=== PATIENT | male | born 1950 | race Caucasian/White ===

== ENCOUNTER 2021-08-17 15:47 | Observation (INO) | payer MEDICARE, OTHER ==
[2021-08-17 16:10] LABS: CHLORIDE,CL 104 mEq/L (98-106); SODIUM,NA 142 mEq/L (136-145)
[2021-08-17] MEDS ORDERED: Aspirin 81 MG Tab.Chew PO ONE (16:43)
--- NOTE | 2021-08-17 18:08 | EDM.PDOC ---
ED HPI GENERAL MEDICAL PROBLEM - General Chief Complaint: General Stated Complaint: CP/SOB Time Seen by Provider: 08/17/21 16:09 Source of Information: Reports: Patient History Limitations: Reports: No Limitations - History of Present Illness INITIAL COMMENTS - FREE TEXT/NARRATIVE: Alonzo is a 70 year old male with PMH of type 2 DM, CAD, hyperlipidemia, and BPH who presents to the ED with c/o midsternal chest pain. He reports onset yesterday afternoon. Describes the pain as pressure. He reports he did take nitro x3 prior to presenting to the ED and these did not relieve pain. Was given aspirin upon arrival, which he states did help the pressure type pain some. Does admit to onset of some phlegm and cough this morning. He denies any shortness of breath, dizziness, nausea, diaphoresis, palpitations. Does have hx of CAD with stent x1 back in approximately 2008 per his report. I do not have his records available for review. 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 He is originally from the [facility]. Onset Date: 08/16/21 Location: Reports: Chest Quality: Reports: Pressure Associated Symptoms: Reports: Chest Pain, Cough. Denies: Confusion, Diaphoresis, Fever/Chills, Headaches, Loss of Appetite, Malaise, Nausea/Vomiting, Rash, Seizure, Shortness of Breath, Syncope, Weakness mid sternal chest Pain Score (Numeric/FACES): 5 - Related Data Allergies Allergy/AdvReac Type Severity Reaction Status Date / Time bacitracin Allergy Hives Verified 08/17/21 15:48 [From Neosporin ([id number])] bee venom protein (honey bee) Allergy Anaphylactic Verified 08/17/21 15:48 Shock neomycin Allergy Hives Verified 08/17/21 15:48 [From Neosporin ([id number])] polymyxin B Allergy Hives Verified 08/17/21 15:48 [From Neosporin ([id number])] Home Meds: Home Meds Finasteride 1 mg PO DAILY 08/17/21 [History] Insulin Detemir [Levemir Flextouch] 52 unit SQ BID 08/17/21 [History] Liraglutide [Victoza 2-Jared] 1.8 mg SQ DAILY 08/17/21 [History] Lovastatin 20 mg PO DAILY 08/17/21 [History] Quinapril [Accupril] 10 mg PO DAILY 08/17/21 [History] Tamsulosin [Tamsulosin 24 Hr] 0.4 mg PO DAILY 08/17/21 [History] metFORMIN [Glucophage] 1,000 mg PO BIDMEALS 08/17/21 [History] Past Medical History Cardiovascular History: Reports: High Cholesterol, Hypertension, MS, Stents Genitourinary History: Reports: BPH Endocrine/Metabolic History: Reports: Diabetes, Type II Social & Family History - Family History Family Medical History: No Pertinent Family History - Tobacco Use Tobacco Use Status *Q: Unknown Ever Used Tobacco Second Hand Smoke Exposure: No ED ROS GENERAL - Review of Systems Review Of Systems: Comprehensive ROS is negative, except as noted in HPI. ED EXAM, GENERAL - Physical Exam Exam: See Below Exam Limited By: No Limitations General Appearance: Alert, WD/WN, No Apparent Distress Ears: Normal External Exam, Normal Canal, Hearing Grossly Normal, Normal TMs Nose: Normal Inspection, Normal Mucosa, No Blood Throat/Mouth: Normal Inspection, Normal Lips, Normal Teeth, Normal Gums, Normal Oropharynx, Normal Voice, No Airway Compromise Head: Atraumatic, Normocephalic Neck: Normal Inspection, Supple, Non-Tender, Full Range of Motion Respiratory/Chest: No Respiratory Distress, Lungs Clear, Normal Breath Sounds, No Accessory Muscle Use, Chest Non-Tender Cardiovascular: Normal Peripheral Pulses, Regular Rate, Rhythm, No Edema, No Gallop, No JVD, No Murmur, No Rub GI/Abdominal: Normal Bowel Sounds, Soft, Non-Tender, No Organomegaly, No Distention, No Abnormal Bruit, No Mass Extremities: Normal Inspection, Normal Range of Motion, Non-Tender, Normal Capillary Refill, No Pedal Edema Neurological: Alert, Oriented, CN II-XII Intact, Normal Cognition, Normal Gait, Normal Reflexes, No Motor/Sensory Deficits Psychiatric: Normal Affect, Normal Mood Skin Exam: Warm, Dry, Intact, Normal Color, No Rash Course - Vital Signs Last Recorded V/S: Last Vital Signs Temp 97.9 F 08/17/21 18:47 Pulse 81 08/17/21 18:47 Resp 18 08/17/21 18:47 BP 142/74 H 08/17/21 18:47 Pulse Ox 96 08/17/21 18:47 - Orders/Labs/Meds Orders: Active Orders 24 hr Category Date Time Status Chest 2V [CR] Stat Exams 08/17/21 15:52 Ordered EKG 12 Lead [EK] Routine Ther 08/17/21 19:00 Ordered Labs: Laboratory Tests 08/17/21 08/17/21 08/17/21 Range/Units 15:52 15:52 15:52 WBC 9.0 (4.0-11.0) 10^3/uL RBC 5.64 (4.50-6.00) x10^6/uL Hgb 15.5 (14.0-18.0) g/dL Hct 46.9 (42.0-52.0) % MCV 83.2 (83.0-97.0) fL MCH 27.5 (27.0-32.0) pg MCHC 33.0 (32.0-36.0) g/dL RDW Coeff of Rita 13.1 (11.0-15.0) % Plt Count 247 (150-400) 10^3/uL Immature Gran % (Auto) 0.9 (0.0-4.9) % Neut % (Auto) 67.3 (41-71) % Lymph % (Auto) 20.1 L (24-44) % [place]rentiss % (Auto) 7.5 (0-10) % Eos % (Auto) 3.4 (0-6) % Baso % (Auto) 0.8 (0-1) % Neut # (Auto) 6.08 (1.80-8.00) x10^3/uL Lymph # (Auto) 1.82 (0.60-5.00) 10^3/uL [place]rentiss # (Auto) 0.68 (0.00-1.50) 10^3/uL Eos # (Auto) 0.31 (0.00-1.50) 10^3/uL Baso # (Auto) 0.07 (0.00-0.50) 10^3/uL Immature Gran # (Auto) 0.08 (0.00-0.49) 10^3/uL Sodium 142 (136-145) mEq/L Potassium 4.0 (3.5-5.0) mEq/L Chloride 104 (98-106) mEq/L Carbon Dioxide 30 (21-32) mmol/L BUN 20 H (7-18) mg/dL Creatinine 1.2 (0.7-1.3) mg/dL Est Cr Clr Drug Dosing 56.21 mL/min Estimated GFR (MDRD) > 60 (>=60) mL/min Glucose 148 H (75-99) mg/dL Calcium 9.2 (8.4-10.1) mg/dL Magnesium 2.0 (1.8-2.4) mg/dL Total Bilirubin 0.6 (0.0-1.0) mg/dL AST 13 L (15-37) U/L ALT 23 (12-78) U/L Alkaline Phosphatase 79 (46-116) U/L Troponin I High Sens 105.7 H* (<=76) pg/mL Total Protein 7.0 (6.4-8.2) g/dL Albumin 3.6 (3.4-5.0) g/dL SARS CoV-2 RNA Rapid GEMMA Negative (NEGATIVE) 08/17/21 Range/Units 19:13 WBC (4.0-11.0) 10^3/uL RBC (4.50-6.00) x10^6/uL Hgb (14.0-18.0) g/dL Hct (42.0-52.0) % MCV (83.0-97.0) fL MCH (27.0-32.0) pg MCHC (32.0-36.0) g/dL RDW Coeff of Rita (11.0-15.0) % Plt Count (150-400) 10^3/uL Immature Gran % (Auto) (0.0-4.9) % Neut % (Auto) (41-71) % Lymph % (Auto) (24-44) % Prentiss % (Auto) (0-10) % Eos % (Auto) (0-6) % Baso % (Auto) (0-1) % Neut # (Auto) (1.80-8.00) x10^3/uL Lymph # (Auto) (0.60-5.00) 10^3/uL Prentiss # (Auto) (0.00-1.50) 10^3/uL Eos # (Auto) (0.00-1.50) 10^3/uL Baso # (Auto) (0.00-0.50) 10^3/uL Immature Gran # (Auto) (0.00-0.49) 10^3/uL Sodium (136-145) mEq/L Potassium (3.5-5.0) mEq/L Chloride (98-106) mEq/L Carbon Dioxide (21-32) mmol/L BUN (7-18) mg/dL Creatinine (0.7-1.3) mg/dL Est Cr Clr Drug Dosing mL/min Estimated GFR (MDRD) (>=60) mL/min Glucose (75-99) mg/dL Calcium (8.4-10.1) mg/dL Magnesium (1.8-2.4) mg/dL Total Bilirubin (0.0-1.0) mg/dL AST (15-37) U/L ALT (12-78) U/L Alkaline Phosphatase (46-116) U/L Troponin I High Sens 122.8 H* (<=76) pg/mL Total Protein (6.4-8.2) g/dL Albumin (3.4-5.0) g/dL SARS CoV-2 RNA Rapid GEMMA (NEGATIVE) Meds: Medications Discontinued Medications Generic Name Dose Route Start Last Admin Trade Name Freq PRN Reason Stop Dose Admin Aspirin 324 mg 08/17/21 16:43 08/17/21 16:44 Aspirin 81 Mg Tab.Chew PO 08/17/21 16:44 324 mg ONETIME ONE Administration - Re-Assessments/Exams Free Text/Narrative Re-Assessment/Exam: 08/17/2021 1700 Discussed labs, EKG and CXR results with patient. EKG shows NSR without any ST changes. VSS on RA. Labs all unremarkable except high sensitivity troponin elevated to 105.7. This was discussed with patient. Recommend we repeat labs in 3 hours. Discussed observation stay vs. repeat of labs and EKG at 3 hours socorro. He does not wish to stay observation but is agreeable to have lab work repeated and be monitored on telemetry. Will keep in extended ED. 08/17/2021 1930 Repeat troponin and EKG completed. EKG without changes. Troponin elevated to 122.8. Patient prefers [facility] if able, as he is originally from [place] and this is closest. Contacted [facility] and [facility]. They are unable to accept transfer at this time due to no bed availability. I did consult with [facility] sales and service technician Dr. Watters. Recommend trending t roponin to peak and fall, every 3-4 hrs or STAT if chest pain returns. Also recommend repeat EKG every 3 hours as well as initiation of heparin gtt and aspirin. Discussed with patient and patient's via phone. He is now agreeable to observation stay. Patient wished for me to contact his , who is a nurse. Discussed risks and benefits of heparin with patient's , who is a nurse. Risk of bleeding. She verbalized understanding. Departure - Departure Time of Disposition: 21:07 Disposition: Refer to Observation Condition: Fair Clinical Impression: NSTEMI (non-ST elevated myocardial infarction) - Discharge Information *PRESCRIPTION DRUG MONITORING PROGRAM REVIEWED*: Not Applicable *COPY OF PRESCRIPTION DRUG MONITORING REPORT IN PATIENT NOHEMI: Not Applicable Sepsis Event Note (ED) - Evaluation Sepsis Screening Result: No Definite Risk - Focused Exam Vital Signs: Vital Signs Temp Pulse Resp BP Pulse Ox 08/17/21 18:47 97.9 F 81 18 142/74 H 96 08/17/21 16:43 86 18 123/85 95 08/17/21 15:59 97.8 F 68 18 137/92 H 96 - Problem List & Annotations (1) NSTEMI (non-ST elevated myocardial infarction) SNOMED Code(s): 33515770 Code(s): I21.4 - NON-ST ELEVATION (NSTEMI) MYOCARDIAL INFARCTION Status: Acute Current Visit: Yes - Problem List Review Problem List Initiated/Reviewed/Updated: Yes - My Orders Last 24 Hours: My Active Orders 08/17/21 15:52 Chest 2V [CR] Stat 08/17/21 19:00 EKG 12 Lead [EK] Routine - Assessment/Plan Admission H&P: Please use this note as an admission H&P Last 24 Hours: My Active Orders 08/17/21 15:52 Chest 2V [CR] Stat 08/17/21 19:00 EKG 12 Lead [EK] Routine Assessment:: NSTEMI Plan: 70 yo gentleman presents to ED with 1.5 day history of midsternal chest pain, described as pressure. Prior to presentation, he did take nitro x 3 doses without relief of pain. He did report mild relief of pain after aspirin dose. Lab work unremarkable except troponin elevated to 105.7. EKG NSR without ST changes. Repeat troponin elevated to 122.8. Attempted to transfer patient to higher level of care without success due to limited bed availability. Consulted with [facility] sales and service technician Dr. Watters who recommends initiating heparin gtt and trending troponin throughout the night. Patient will be admitted to observation for ongoing cardiac monitoring. Patient and patient's verbalized understanding and were agreeable with plan.
[2021-08-17] MEDS ORDERED: Heparin Sodium/0.45% NaCl 500 ML IV SCH (21:42)
[2021-08-17] MEDS ORDERED: Sodium Chloride 0.9% 10 ML Syringe FLUSH PRN (21:42)
[2021-08-17] MEDS ORDERED: Nitroglycerin 2% Oint 1 GM UD Packet TOP PRN (21:42)
[2021-08-17] MEDS ORDERED: Non-Formulary Medication 1 Each (Insulin Detemir 100 UNIT/ML Insuln.Pen) SQ SCH (21:45)
[2021-08-17] MEDS ORDERED: Metoprolol Tartrate 25 MG Tab PO SCH (22:00)
[2021-08-17] MEDS: Morphine 2 MG/ML SYRINGE IVPUSH PRN ×2 (22:06→23:49)
[2021-08-17] MEDS ORDERED: Heparin Sodium/0.45% NaCl 500 ML ONE (22:20)
[2021-08-17] MEDS ORDERED: Heparin Sodium 5,000 Units/ML Vial IVPUSH ONE (22:33)
[2021-08-17] MEDS ORDERED: Heparin Sodium 5,000 Units/ML Vial ONE (23:04)
--- NOTE | 2021-08-17 23:26 | PCM.DCSUM1 ---
Discharge Summary - Hospital Course Free Text/Narrative:: Alonzo is a pleasant 70 year old male with PMH type 2 DM, CAD s/p stent in 2008, BPH, HTN and hyperlipidemia, who presented to our ED with c/o a 1.5 day history of mid sternal chest pain described as pressure. Did take 3 SL nitro tabs prior to presentation without relief of pain. Upon presentation to ED, pain was rated at an 8/10. Did have improvement in pain after aspirin was administered. Was initially unable to transfer to higher level of care due to limited bed availability. Serial troponin revealed increasing from 105 to 128 to 433. He did not have EKG changes on repeat EKGs. Heparin gtt was initiated. Morphine x2 administered with short term relief of pain following each dose. Nitro gtt was started as well. Pain did improve following nitro gtt. Again contacted [facility] and reported these lab results along with patient's current pain level and they graciously accepted the patient for transfer. Was unable to provide ground ALS transport locally or from neighboring EMS crews, so [facility] was contacted and will provide helicopter transport to [facility]. Risks and benefits of transfer were discussed with patient. Risks of transfer include but not limited to worsening of condition, , helicopter crash, pain. Benefits of transfer include higher level of care with PCI capability. Risks of nontransfer include worsening of condition, and no PCI. Benefits of nontransfer include convenience. Patient verbalized understanding and was agreeable to transfer. Patient discharged from our facility to the care of [facility] in stable condition. - Discharge Data Discharge Date: 08/17/21 Discharge Disposition: DC/Tfer to Acute Hospital 02 Condition: Good - Referral to Home Health Primary Care Physician: PCP Not In Area - Discharge Diagnosis/Problem(s) (1) NSTEMI (non-ST elevated myocardial infarction) SNOMED Code(s): 95412442 ICD Code: I21.4 - NON-ST ELEVATION (NSTEMI) MYOCARDIAL INFARCTION Status: Acute Current Visit: Yes - Patient Instructions Diet: NPO - Discharge Plan *PRESCRIPTION DRUG MONITORING PROGRAM REVIEWED*: Not Applicable *COPY OF PRESCRIPTION DRUG MONITORING REPORT IN PATIENT NOHEMI: Not Applicable Home Medications: Home Meds Finasteride 1 mg PO DAILY 08/17/21 [History] Insulin Detemir [Levemir Flextouch] 52 unit SQ BID 08/17/21 [History] Liraglutide [Victoza 2-Jared] 1.8 mg SQ DAILY 08/17/21 [History] Lovastatin 20 mg PO DAILY 08/17/21 [History] Quinapril [Accupril] 10 mg PO DAILY 08/17/21 [History] Tamsulosin [Tamsulosin 24 Hr] 0.4 mg PO DAILY 08/17/21 [History] metFORMIN [Glucophage] 1,000 mg PO BIDMEALS 08/17/21 [History] Patient Handouts: Nonspecific Chest Pain, Adult, [id number] Forms: ED Department Discharge Referrals: PCP,Not In Area [Primary Care Provider] - - Discharge Summary/Plan Comment DC Time >30 min.: Yes (Multiple phone calls to find accepting facility) Total # of Minutes for Discharge Time: 90 minutes - General Info Date of Service: 08/17/21 Admission Dx/Problem (Free Text: NSTEMI Functional Status: Reports: Other (ongoing chest pain) - Review of Systems General: Reports: No Symptoms Pulmonary: Denies: Shortness of Breath, Cough Cardiovascular: Reports: Chest Pain, Dyspnea on Exertion Gastrointestinal: Reports: Other (belching, indigestion) Genitourinary: Reports: No Symptoms Musculoskeletal: Reports: No Symptoms Skin: Reports: No Symptoms Neurological: Reports: No Symptoms Psychiatric: Reports: No Symptoms - Patient Data Vitals - Most Recent: Last Vital Signs Temp 97.4 F 08/17/21 21:13 Pulse 74 08/17/21 23:01 Resp 18 08/17/21 21:13 BP 165/99 H 08/17/21 23:01 Pulse Ox 95 08/17/21 21:13 Weight - Most Recent: 224 lb Lab Results - Last 24 hrs: Laboratory Results - last 24 hr 08/17/21 08/17/21 08/17/21 Range/Units 15:52 15:52 15:52 WBC 9.0 (4.0-11.0) 10^3/uL RBC 5.64 (4.50-6.00) x10^6/uL Hgb 15.5 (14.0-18.0) g/dL Hct 46.9 (42.0-52.0) % MCV 83.2 (83.0-97.0) fL MCH 27.5 (27.0-32.0) pg MCHC 33.0 (32.0-36.0) g/dL RDW Coeff of Rita 13.1 (11.0-15.0) % Plt Count 247 (150-400) 10^3/uL Immature Gran % (Auto) 0.9 (0.0-4.9) % Neut % (Auto) 67.3 (41-71) % Lymph % (Auto) 20.1 L (24-44) % [place] % (Auto) 7.5 (0-10) % Eos % (Auto) 3.4 (0-6) % Baso % (Auto) 0.8 (0-1) % Neut # (Auto) 6.08 (1.80-8.00) x10^3/uL Lymph # (Auto) 1.82 (0.60-5.00) 10^3/uL [place] # (Auto) 0.68 (0.00-1.50) 10^3/uL Eos # (Auto) 0.31 (0.00-1.50) 10^3/uL Baso # (Auto) 0.07 (0.00-0.50) 10^3/uL Immature Gran # (Auto) 0.08 (0.00-0.49) 10^3/uL APTT (23.2-32.3) SEC Sodium 142 (136-145) mEq/L Potassium 4.0 (3.5-5.0) mEq/L Chloride 104 (98-106) mEq/L Carbon Dioxide 30 (21-32) mmol/L BUN 20 H (7-18) mg/dL Creatinine 1.2 (0.7-1.3) mg/dL Est Cr Clr Drug Dosing 56.21 mL/min Estimated GFR (MDRD) > 60 (>=60) mL/min Glucose 148 H (75-99) mg/dL Calcium 9.2 (8.4-10.1) mg/dL Magnesium 2.0 (1.8-2.4) mg/dL Total Bilirubin 0.6 (0.0-1.0) mg/dL AST 13 L (15-37) U/L ALT 23 (12-78) U/L Alkaline Phosphatase 79 (46-116) U/L Troponin I High Sens 105.7 H* (<=76) pg/mL Total Protein 7.0 (6.4-8.2) g/dL Albumin 3.6 (3.4-5.0) g/dL SARS CoV-2 RNA Rapid GEMMA Negative (NEGATIVE) 08/17/21 08/17/21 08/17/21 Range/Units 19:13 22:10 22:10 WBC (4.0-11.0) 10^3/uL RBC (4.50-6.00) x10^6/uL Hgb (14.0-18.0) g/dL Hct (42.0-52.0) % MCV (83.0-97.0) fL MCH (27.0-32.0) pg MCHC (32.0-36.0) g/dL RDW Coeff of Rita (11.0-15.0) % Plt Count (150-400) 10^3/uL Immature Gran % (Auto) (0.0-4.9) % Neut % (Auto) (41-71) % Lymph % (Auto) (24-44) % [place] % (Auto) (0-10) % Eos % (Auto) (0-6) % Baso % (Auto) (0-1) % Neut # (Auto) (1.80-8.00) x10^3/uL Lymph # (Auto) (0.60-5.00) 10^3/uL [place]ia # (Auto) (0.00-1.50) 10^3/uL Eos # (Auto) (0.00-1.50) 10^3/uL Baso # (Auto) (0.00-0.50) 10^3/uL Immature Gran # (Auto) (0.00-0.49) 10^3/uL APTT 25.6 (23.2-32.3) SEC Sodium (136-145) mEq/L Potassium (3.5-5.0) mEq/L Chloride (98-106) mEq/L Carbon Dioxide (21-32) mmol/L BUN (7-18) mg/dL Creatinine (0.7-1.3) mg/dL Est Cr Clr Drug Dosing mL/min Estimated GFR (MDRD) (>=60) mL/min Glucose (75-99) mg/dL Calcium (8.4-10.1) mg/dL Magnesium (1.8-2.4) mg/dL Total Bilirubin (0.0-1.0) mg/dL AST (15-37) U/L ALT (12-78) U/L Alkaline Phosphatase (46-116) U/L Troponin I High Sens 122.8 H* 433.9 H* (<=76) pg/mL Total Protein (6.4-8.2) g/dL Albumin (3.4-5.0) g/dL SARS CoV-2 RNA Rapid GEMMA (NEGATIVE) Med Orders - Current: Current Medications Aspirin (Aspirin 81 Mg Tab.Ec) 81 mg PO WITHBREAKFAST [facility] Heparin Sodium/Sodium Chloride (Heparin 25,000 Units In 1/2 Ns 500 Ml) 500 mls @ 20 mls/hr IV TITRATE KELLE; Protocol Last Admin: 08/17/21 22:58 Dose: 20 mls/hr Documented by: Metformin HCl (Metformin 500 Mg Tab) 1,000 mg PO BIDMEALS [facility] Metoprolol Tartrate (Metoprolol Tartrate 25 Mg Tab) 25 mg PO Q12H KELLE Last Admin: 08/17/21 23:01 Dose: 25 mg Documented by: Morphine Sulfate (Morphine 2 Mg/Ml Syringe) 2 mg IVPUSH Q2H PRN PRN Reason: Pain (severe 7-10) Last Admin: 08/17/21 22:06 Dose: 2 mg Documented by: Nitroglycerin (Nitroglycerin 2% Oint 1 Gm Ud Packet) 1 gm TOP Q6H PRN PRN Reason: Chest Pain Non-Formulary Medication (Finasteride [Finasteride]) 1 mg PO DAILY [facility] Non-Formulary Medication (Insulin Detemir) 52 unit SQ BID [facility] Non-Formulary Medication (Liraglutide [Victoza 2-Jared]) 1.8 mg SQ DAILY [facility] Non-Formulary Medication (Lovastatin) 20 mg PO DAILY [facility] Non-Formulary Medication (Quinapril) 10 mg PO DAILY [facility] Sodium Chloride (Sodium Chloride 0.9% 10 Ml Syringe) 10 ml FLUSH ASDIRECTED PRN PRN Reason: Keep Vein Open Tamsulosin HCl (Tamsulosin 0.4 Mg Cap.Er) 0.4 mg PO DAILY [facility] Discontinued Medications Aspirin (Aspirin 81 Mg Tab.Chew) 324 mg PO ONETIME ONE Stop: 08/17/21 16:44 Last Admin: 08/17/21 16:44 Dose: 324 mg Documented by: Heparin Sodium (Porcine) (Heparin Sodium 5,000 Units/Ml Vial) 4,000 units IVPUSH ONETIME ONE Stop: 08/17/21 22:34 Last Admin: 08/17/21 22:43 Dose: 4,000 units Documented by: Heparin Sodium (Porcine) (Heparin Sodium 5,000 Units/Ml Vial) Confirm Administered Dose 5,000 units .ROUTE .STK-MED ONE Stop: 08/17/21 23:05 Heparin Sodium/Sodium Chloride (Heparin 25,000 Units In 1/2 Ns 500 Ml) Confirm Administered Dose 500 mls @ as directed .ROUTE .STK-MED ONE Stop: 08/17/21 22:21 - Exam General: Reports: Alert, Oriented, No Acute Distress Neck: Reports: Supple Lungs: Reports: Clear to Auscultation, Normal Respiratory Effort Cardiovascular: Reports: Regular Rate, Regular Rhythm GI/Abdominal Exam: Normal Bowel Sounds, Soft, Non-Tender, No Organomegaly, No Distention, No Abnormal Bruit, No Mass, Pelvis Stable Back Exam: Reports: Normal Inspection, Full Range of Motion Extremities: Normal Inspection, Normal Range of Motion, Non-Tender, No Pedal Edema, Normal Capillary Refill Skin: Reports: Warm, Dry, Intact Neurological: Reports: No New Focal Deficit Psy/Mental Status: Reports: Alert, Normal Affect, Normal Mood
[2021-08-17] MEDS ORDERED: Nitroglycerin/D5W 25 MG/250 ML BOTTLE IV SCH (23:30)
[2021-08-17] MEDS ORDERED: Nitroglycerin/D5W 25 MG/250 ML BOTTLE ONE (23:59)
[2021-08-18] MEDS ORDERED: metFORMIN 500 MG Tab PO SCH (08:00)
[2021-08-18] MEDS ORDERED: Non-Formulary Medication 1 Each (Liraglutide [Victoza 2-Pak] 18 MG/3 ML Pen) SQ SCH (08:00)
[2021-08-18] MEDS ORDERED: LOVASTATIN 20 MG PO SCH (08:00)
[2021-08-18] MEDS ORDERED: Non-Formulary Medication 1 Each (Finasteride [Finasteride] 1 MG Tablet) PO SCH (08:00)
[2021-08-18] MEDS ORDERED: QUINAPRIL 10 MG PO SCH (08:00)
[2021-08-18] MEDS ORDERED: Aspirin 81 MG Tab.EC PO SCH (08:00)
[2021-08-18] MEDS ORDERED: Tamsulosin 0.4 MG Cap.ER PO SCH (08:00)
== END 2021-08-18 00:39 ==
LOC: CC.ED 15:47 → CC.MS 21:00 → UNDOADMOB 21:00 → CC.MS 21:15 → UNDODISOB 08-18 00:39
PROVIDERS: ADMIT Nurse Practitioner Family; ATTEND Nurse Practitioner Family
DX: I21.4 Non-ST elevation (NSTEMI) myocardial infarction (principal); E11.9 Type 2 diabetes mellitus without complications; I25.10 Atherosclerotic heart disease of native coronary artery without angina pectoris; E78.5 Hyperlipidemia, unspecified; N40.0 Benign prostatic hyperplasia without lower urinary tract symptoms; E78.00 Pure hypercholesterolemia, unspecified; I10 Essential (primary) hypertension; Z20.822 Contact with and (suspected) exposure to COVID-19; Z91.030 Bee allergy status; Z88.8 Allergy status to other drugs, medicaments and biological substances; Z79.899 Other long term (current) drug therapy; Z79.4 Long term (current) use of insulin; Z79.84 Long term (current) use of oral hypoglycemic drugs
CPT/HCPCS: 36415; 71046; 80053; 83735; 84484; 85025; 85730; 93005; 96365; 96366; 96375; 96376; 99285; A9270; G0378; J1644; J2270; J3490; U0002